=== PATIENT | female | born 1990 | race Caucasian/White ===

== ENCOUNTER 2024-10-18 22:22 | Inpatient (IN) | payer MEDICAID ==
[~2024-10-18] VITALS: Ht 167.6 cm; Wt 119.0 kg
--- NOTE | 2024-10-18 22:42 | ED.PDOC ---
History of Present Illness HPI Comments 35 y/o F, with a history of HTN, obesity, cholecystectomy, and J-tube placement, is BIBA for c/o abdominal and back pain, abdominal distension, dizziness, weakness, and chills, today. Per EMS report, patient endorses on onset of symptoms following cholecystectomy she had performed on 10/01/24 and calling, toda y, due to feeling more weak. She comments on pain being diffused across her abdomen but more localized around her RLQ. She reports no additional relevant information at time of initial assessment, such as recent injuries, sick contact, or spoiled food intake. Patient reports no nausea, vomiting, diarrhea, urinary symptoms, fever, chills, or other associated symptoms or modifiers at this time. 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 Past Medical History PAST MEDICAL HISTORY: HTN Past Medical History (Other): obesity Surgical History: Cholecystectomy Surgical History (Other): J-tube All Other Systems: Reviewed and Negative (negative unless otherwise stated above or in HPI) Physical Exam General Appearance: Mild Distress, No Apparent Distress, Obese HEENT: Normal ENT Inspection, Pharynx Normal, TMs Normal Neck: Full Range of Motion, Non-Tender, Normal, Normal Inspection Respiratory: Chest Non-Tender, Lungs Clear, No Accessory Muscle Use, No Respiratory Distress, Normal Breath Sounds Cardiovascular: No Edema, No JVD, No Murmur, No Gallop, Normal Peripheral Pulses, Regular Rate/Rhythm Breast Exam: Deferred Gastrointestinal: No Organomegaly, No Pulsatile Mass, Normal Bowel Sounds, RLQ (tenderness around J-tube site ), Soft, Tenderness (RLQ around J-tube, no peritoneal signs ), Other (J-tube in place ) Genitalia: Deferred Pelvic: Deferred Rectal: Deferred Extremities: No calf tenderness, Normal capillary refill, Normal inspection, Normal range of motion, Non-tender, No pedal edema Musculoskeletal : Apperance: Normal Neurologic: Alert, 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 Was a procedure done?: No Differential Dx Considerations may include: post-op complication, secondary infection X-Ray, Labs, Meds, VS Vital Signs Date Time Temp Pulse Resp B/P (MAP) Pulse Ox O2 Delivery O2 Flow Rate FiO2 10/19/24 02:01 92 16 152/93 10/19/24 00:00 98 10/18/24 23:00 97.9 97 12 150/95 (113) 100 97.9 10/18/24 22:41 99.1 96 18 181/119 (139) 98 Lab Test 10/18/24 23:13 10/18/24 02:20 Range/Units White Blood Count 11.3 H 4.4-10.8 10^3/uL Red Blood Count 3.39 L 4.0-5.20 10^6/uL Hemoglobin 9.2 L 12.2-16.2 g/dL Hematocrit 28.6 L 36.0-46.0 % Mean Corpuscular Volume 84.4 80.0-100.0 fL Mean Corpuscular Hemoglobin 27.3 L 28.0-32.0 pg Mean Corpuscular Hemoglobin Concent 32.3 32.0-36.0 g/dL Red Cell Distribution Width 16.3 H 11.8-14.3 % Platelet Count 517 H 140-450 10^3/uL Mean Platelet Volume 7.0 6.9-10.8 fL Neutrophils (%) (Auto) 76.5 37.0-80.0 % Lymphocytes (%) (Auto) 16.6 10.0-50.0 % Monocytes (%) (Auto) 5.0 0.0-12.0 % Eosinophils (%) (Auto) 1.5 0.0-7.0 % Basophils (%) (Auto) 0.4 0.0-2.0 % Neutrophils # (Auto) 8.6 1.6-8.6 10 ^3/uL Lymphocytes # (Auto) 1.9 0.4-5.4 10 ^3/uL Monocytes # (Auto) 0.6 0-1.3 10 ^3/uL Eosinophils # (Auto) 0.2 0-0.8 10 ^3/uL Basophils # (Auto) 0 0-0.2 10 ^3/uL Nucleated Red Blood Cells 0.1 % Sodium Level 139 136-145 mmol/L Potassium Level 3.6 3.5-5.1 mmol/L Chloride Level 105 98-107 mmol/L Carbon Dioxide Level 24 20-31 mmol/L Anion Gap 10 5-15 Blood Urea Nitrogen 13 9-23 mg/dL Creatinine 0.68 0.550-1.02 mg/dL Glomerular Filtration Rate Calc 116 >90 mL/min BUN/Creatinine Ratio 19.1 10.0-20.0 Serum Glucose 85 74-106 mg/dL Calcium Level 10.0 8.7-10.4 mg/dL Total Bilirubin 0.4 0.2-1.0 mg/dL Aspartate Amino Transferase (AST) 13 13-40 U/L Alanine Aminotransferase (ALT) 15 7-40 U/L Alkaline Phosphatase 55 46-116 U/L Total Protein 7.3 5.7-8.2 g/dL Albumin 4.4 3.2-4.8 g/dL Lipase 70 H 12-53 U/L Beta HCG, Quantitative 0.6 L 1.5-4.2 mIU/mL Urine Color Light-yellow Yellow Urine Clarity Turbid H Clear Urine pH 7.0 5.0-9.0 Urine Specific [place] 1.021 1.001-1.035 Urine Protein Negative Negative Urine Ketones Negative Negative Urine Blood Negative Negative /uL Urine Nitrite Negative Negative Urine Bilirubin Negative Negative Urine Urobilinogen Normal Negative mg/dL Urine Leukocyte Esterase Negative Negative /uL Urine RBC 2 0 - 4 /hpf Urine Microscopic WBC 3 0-5 /HPF Urine Squamous Epithelial Cells Mod <5 /hpf Urine Amorphous Crystals Few None Seen /hpf Urine Bacteria None seen None Seen /hpf Urine Mucus Few None Seen Urine Glucose Normal Normal mg/dL Current Medications Medications (Trade) Dose Ordered Sig/[place] Route Start Time Stop Time Status Last Admin Ondansetron HCl (Zofran) 4 mg ONCE ONCE IV 10/18/24 22:45 10/18/24 22:46 DC 10/19/24 02:01 Sodium Chloride 1,000 ml @ 1,000 mls/hr Q1H ONCE IVB 10/18/24 22:45 10/18/24 23:44 DC 10/19/24 02:02 Morphine Sulfate 4 mg ONCE ONCE IV 10/18/24 22:45 10/18/24 22:46 DC 10/19/24 02:01 Time of 1ST Reevaluation: 23:30 Reevaluation 1ST: Unchanged Time of 2ND Reevaluation: 03:55 Reevaluation 2ND: Unchanged Patient Education/Counseling: Diagnosis, Treatment Family Education/Counseling: No Family Present Departure 1 Departure Time of Disposition: 03:56 Impression: Primary Impression: Intra-abdominal fluid collection Additional Impressions: Anemia Post-operative pain Disposition: 09 ADMITTED INPATIENT Condition: Guarded Discharged With: Self Comments Post-Cholecystectomy Abdominal Pain with Fluid Collection Chief Complaint: Right-sided abdominal pain at INDIA drain site status post cholecystectomy History of Present Illness: 35-year-old female presents to the Emergency Department with worsening right- sided abdominal pain at the site of her INDIA drain. Patient underwent cholecystectomy approximately three weeks ago at [facility], performed by Dr. Ferro. She has had persistent pain at the surgical site, which has recently worsened. The INDIA drain remains in place from the original surgery. Patient reports increasing discomfort in the right upper quadrant of her abdomen. Review of Systems: Limited review of systems due to focused evaluation. 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 Abdomen: INDIA drain present in right upper quadrant with surrounding tenderness Lab Results: CBC: - Hemoglobin: 9.0 g/dL (Low) - Hematocrit: 29% (Low) - WBC: 11.3 K/uL (Elevated) Chemistry: - Lipase: 70 U/L (Mildly elevated) Imaging and Other Relevant Results: CT Abdomen: - Significant fluid collection in gallbladder fossa - Differential includes hematoma, infection, or abscess Medical Decision Making: Summary Statement: 35-year-old female presenting with worsening post-cholecystectomy pain, elevated inflammatory markers, and CT evidence of fluid collection, concerning for post-surgical complication. Problem List: 1. Post-cholecystectomy fluid collection 2. Post-operative pain 3. Post-operative anemia 4. Elevated WBC count Differential Diagnosis: 1. Intra-abdominal abscess 2. Post-operative hematoma 3. Biloma 4. Post-surgical infection ED Course: Patient evaluated with labs and CT imaging. Surgical consultation obtained. Decision made to admit for IV antibiotics and further management. Patient agreeable to plan after shared decision making discussion. Assessment and Plan: 1. Post-cholecystectomy fluid collection with possible infection/abscess - Admit to hospital for further management - IV antibiotics to be initiated - Surgical consultation for possible intervention - Monitor INDIA drain output 2. Post-operative anemia (Hgb 9.0) - Monitor hemoglobin trends - Evaluate for active bleeding 3. Post-operative pain - Pain management as appropriate - Continue to monitor symptoms Billing Information: ICD-10: K91.89 - Other postprocedural complications and disorders of digestive system ICD-10: T81.4XXA - Infection following a procedure, initial encounter ICD-10: D64.9 - Anemia, unspecified Critical Care Note Critical Care Time?: Yes (35 min-critical care time only) Critical care comment: Total critical care time: Approximately 36 minutes Due to a high probability of clinically significant, life threatening deterioration, the patient required my highest level of preparedness to intervene emergently and I personally spent this critical care time directly and personally managing the patient. This critical care time included obtaining a history; examining the patient; pulse oximetry; ordering and review of studies; arranging urgent treatment with development of a management plan; evaluation of patient's response to treatment; frequent reassessment; and, discussions with other providers. This critical care time was performed to assess and manage the high probability of imminent, life-threatening deterioration that could result in multi-organ failure. It was exclusive of separately billable procedures and treating other patients. Stability Stability form required: No Heart Score Heart Score: Heart Score Response (Comments) Value History N/A 0 EKG N/A 0 Age N/A 0 Risk Factors N/A 0 Troponin N/A 0 Total 0 I personally scribed for JR GRAFF MD ([email or web address]) on 10/18/24 at 22:42. Electronically submitted by Benny Galicia ([email or web address]). JR GRAFF MD Oct 18, 2024 22:42
[2024-10-18 23:02] VITALS: PULSE 97; RESP 12; O2SAT 100
[2024-10-18 23:27] LABS: Monocytes # (auto) 0.6 10 ^3/uL (0-1.3); White Blood Cell 11.3 10^3/uL (4.4-10.8)
[2024-10-18 23:28] LABS: Basophils # (auto) 0 10 ^3/uL (0-0.2); Basophils % (auto) 0.4 % (0.0-2.0); Eosinophils # (auto) 0.2 10 ^3/uL (0-0.8); Eosinophils % (auto) 1.5 % (0.0-7.0); Hematocrit 28.6 % (36.0-46.0); Hemoglobin 9.2 g/dL (12.2-16.2); Lymphocytes # (auto) 1.9 10 ^3/uL (0.4-5.4); Lymphocytes % (auto) 16.6 % (10.0-50.0); Mean Corpuscular Hemoglobin 27.3 pg (28.0-32.0); Mean Corpuscular Hgb Conc. 32.3 g/dL (32.0-36.0); Mean Corpuscular Volume 84.4 fL (80.0-100.0); Neutrophils # (auto) 8.6 10 ^3/uL (1.6-8.6); Neutrophils % (auto) 76.5 % (37.0-80.0); Nucleated Red Blood Cells % 0.1 %; Platelet Count (auto) 517 10^3/uL (140-450); Red Blood Cells 3.39 10^6/uL (4.0-5.20); Red Cell Distribution Width 16.3 % (11.8-14.3)
[2024-10-18 23:39] LABS: Alanine Aminotransferase 15 U/L (7-40); Albumin 4.4 g/dL (3.2-4.8); Alkaline Phosphatase 55 U/L (46-116); Anion Gap 10 (5-15); BUN/Creatinine Ratio 19.1 (10.0-20.0); Bilirubin, Total 0.4 mg/dL (0.2-1.0); Blood Urea Nitrogen 13 mg/dL (9-23); Carbon Dioxide 24 mmol/L (20-31); Chloride 105 mmol/L (98-107); Glucose 85 mg/dL (74-106); Potassium 3.6 mmol/L (3.5-5.1); Sodium 139 mmol/L (136-145)
[2024-10-18 23:40] LABS: Total Protein 7.3 g/dL (5.7-8.2)
[2024-10-18 23:41] LABS: Aspartate Aminotransferase 13 U/L (13-40); Lipase 70 U/L (12-53)
[2024-10-19] MEDS: MORPHINE SULFATE 4 MG/ML SYR/VIAL IV ONE (02:01)
[2024-10-19] MEDS: ONDANSETRON HCL 4 MG/2 ML VIAL IV ONE (02:01)
[2024-10-19] MEDS: SODIUM CHLORIDE 0.9% 1,000 ML IVB ONE (02:02)
[2024-10-19 02:35] LABS: Urine Bacteria None Seen /hpf (None Seen)
[2024-10-19 02:51] LABS: Urine Amorphous Crystal FEW /hpf (None Seen); Urine Blood Negative /uL (Negative); Urine Clarity Turbid (Clear); Urine Color Light-Yellow (Yellow); Urine Mucus FEW (None Seen); Urine Protein, UAD Negative (Negative); Urine Specific Gravity 1.021 (1.001-1.035); Urine Squamous Epithelial Cell MOD /hpf (<5); Urine Urobilinogen Normal (Negative); Urine WBC 3 /HPF (0-5)
[2024-10-19] MEDS: IOHEXOL 300 MG/ML 100ML BOTTLE IJ ONE (03:29)
--- NOTE | 2024-10-19 03:34 | DVH ---
Exam: CT CT AB PEL WITH IV CON ONLY History: right sided abd pain s/p cholecystectomy Comparison Study: None available at time of dictation. Technique: Multidetector spiral CT of the abdomen and pelvis was performed from lung bases to pubic s ymphysis. Intravenous contrast was administered during this examination. Portal venous imaging was obtained. Axial, coronal and sagittal multiplanar reformats were performed by the technologist on a separate workstation. Radiation Dose : 1. Abdomen/Pelvis: CTDIvol 27.83mGy, DLP 1557.85 mGy*cm. Findings: Lung Bases: No acute or significant lung base finding. Normal heart size. No pleural or pericardial effusion. Liver: The liver is normal in size. No focal lesions. Normal hepatic vascular enhancement. Gallbladder and Biliary Tree: Patient is post cholecystectomy. A surgical drain is noted with its tip in the gallbladder fossa near the hepatic hilum. In the gallbladder fossa there is a mixed density collection measuring 5.6 x 3.9 x 3.8 cm, probably representing a hematoma. Phlegmon is not entirely e xcluded. There is no biliary ductal dilatation. Spleen: Unremarkable Pancreas: The pancreas is normal in appearance without focal lesions or abnormal enhancement. Adrenal Glands: Unremarkable Kidneys: Kidneys demonstrate normal symmetric enhancement without focal lesions, calculi or hydroneph rosis. Bladder: The urinary bladder is relatively contracted. Bowel: The stomach is grossly normal in appearance. There is no evidence for small bowel obstruction. Colon is largely contracted. Normal appendix is visualized in the right lower quadrant without find ings of appendicitis. Ascites: There are small free ascites in the pelvis anteriorly. Lymphadenopathy: No mesenteric, retroperitoneal or periportal lymphadenopathy. Abdominal Wall and Mesentery: Is mild expansion of the right abdominal musculature or the drainage ca theter traverses. Finding most likely represents small intramuscular hematoma although superinfectio n can not be entirely excluded. No drainable fluid collection is appreciated. Vasculature: The visualized abdominal aorta is normal in size and caliber. Abdominal and pelvic vess els demonstrate normal enhancement. Pelvic Organs: Unremarkable Musculoskeletal: No aggressive focal bony lesions, acute fractures or dislocation. IMPRESSION: 1. Postsurgical change as described. Indwelling surgical drain. 2. 5.6 cm mixed density collection in the gallbladder fossa most likely representing a hematoma. Supe rinfection can not be entirely excluded. Radiation optimization: All CT scans at this facility use at least one of these dose optimization kianna hniques: automated exposure control mA and/or kV adjustment per patient size (includes targeted exam s where dose is matched to clinical indication) or iterative reconstruction.
--- NOTE | 2024-10-19 04:18 | DVHHP2 ---
History of Present Illness Reason for Visit: Pain at surgical site History of Present Illness 35-year-old female presents for evaluation of pain at the surgical site status post cholecystectomy. Patient underwent cholecystectomy on 10/01/2024. She reports having tenderness around the surgical site since discharge. Patient reports intermittent chills. Denies nausea or vomiting. No cardiac or respiratory complaints. Past Medical History Hypertension Past Surgical History Cholecystectomy Family History Noncontributory Smoke: No ALCOHOL: none Drugs: None Lives: with Family Review of Systems Review of Systems Review of systems are currently negative otherwise addressed in HPI. Allergies: Coded Allergies: Metronidazole (Verified Allergy, Unknown, 10/18/24) Exam Vital Signs Vital Signs Date Time Temp Pulse Resp B/P (MAP) Pulse Ox O2 Delivery O2 Flow Rate FiO2 10/19/24 02:01 92 16 152/93 10/18/24 23:00 97.9 100 97.9 Exam Gen: 35-year-old female in mild distress, morbidly obese Skin: Warm, dry, normal color and texture, no rash. HEENT: Normocephalic atraumatic, mucous membranes moist and pink. Neck: Cervical and supraclavicular nodes normal without enlargement, trachea is midline, thyroid gland is normal without masses. Pulmonary: Clear to auscultation and percussion bilaterally. Cardiac: Regular rate and rhythm. No murmur Abdomen: Soft, tenderness around INDIA site, nondistended, bowel sounds present all 4 quadrants, no guarding, no rigidity, no organomegaly, a INDIA draining serous fluid. Extremities: No cyanosis, clubbing, no edema Neuro: Cranial nerves II through XII grossly intact, normal affect and speech, no focal motor deficits. Labs/Xrays ORDERING PHYSICIAN: JR GRAFF MD PROCEDURE(s): ABPLIV - CT AB PEL WITH IV CON ONLY REASON: right sided abd pain s/p cholecystectomy ORDER NUMBER(s): [id number], ACCESSION NUMBER(s): [id number] Exam: CT CT AB PEL WITH IV CON ONLY History: right sided abd pain s/p cholecystectomy Comparison Study: None available at time of dictation. Technique: Multidetector spiral CT of the abdomen and pelvis was performed from lung bases to pubic symphysis. Intravenous contrast was administered during this examination. Portal venous imaging was obtained. Axial, coronal and sagittal multiplanar reformats were performed by the technologist on a separate workstation. Radiation Dose : 1. Abdomen/Pelvis: CTDIvol 27.83mGy, DLP 1557.85 mGy*cm. Findings: Lung Bases: No acute or significant lung base finding. Normal heart size. No pleural or pericardial effusion. Liver: The liver is normal in size. No focal lesions. Normal hepatic vascular enhancement. Gallbladder and Biliary Tree: Patient is post cholecystectomy. A surgical drain is noted with its tip in the gallbladder fossa near the hepatic hilum. In the gallbladder fossa there is a mixed density collection measuring 5.6 x 3.9 x 3.8 cm, probably representing a hematoma. Phlegmon is not entirely excluded. There is no biliary ductal dilatation. Spleen: Unremarkable Pancreas: The pancreas is normal in appearance without focal lesions or abnormal enhancement. Adrenal Glands: Unremarkable Kidneys: Kidneys demonstrate normal symmetric enhancement without focal lesions, calculi or hydronephrosis. Bladder: The urinary bladder is relatively contracted. Bowel: The stomach is grossly normal in appearance. There is no evidence for small bowel obstruction. Colon is largely contracted. Normal appendix is visualized in the right lower quadrant without findings of appendicitis. Ascites: There are small free ascites in the pelvis anteriorly. Lymphadenopathy: No mesenteric, retroperitoneal or periportal lymphadenopathy. Abdominal Wall and Mesentery: Is mild expansion of the right abdominal muscula ture or the drainage catheter traverses. Finding most likely represents small intramuscular hematoma although superinfection can not be entirely excluded. No drainable fluid collection is appreciated. Vasculature: The visualized abdominal aorta is normal in size and caliber. Abdominal and pelvic vessels demonstrate normal enhancement. Pelvic Organs: Unremarkable Musculoskeletal: No aggressive focal bony lesions, acute fractures or dislocation. IMPRESSION: 1. Postsurgical change as described. Indwelling surgical drain. 2. 5.6 cm mixed density collection in the gallbladder fossa most likely representing a hematoma. Superinfection can not be entirely excluded. Radiation optimization: All CT scans at this facility use at least one of these dose optimization techniques: automated exposure control mA and/or kV adjustment per patient size (includes targeted exams where dose is matched to clinical indication) or iterative reconstruction. Labs Test 10/18/24 23:13 10/18/24 02:20 Range/Units White Blood Count 11.3 H 4.4-10.8 10^3/uL Red Blood Count 3.39 L 4.0-5.20 10^6/uL Hemoglobin 9.2 L 12.2-16.2 g/dL Hematocrit 28.6 L 36.0-46.0 % Mean Corpuscular Volume 84.4 80.0-100.0 fL Mean Corpuscular Hemoglobin 27.3 L 28.0-32.0 pg Mean Corpuscular Hemoglobin Concent 32.3 32.0-36.0 g/dL Red Cell Distribution Width 16.3 H 11.8-14.3 % Platelet Count 517 H 140-450 10^3/uL Mean Platelet Volume 7.0 6.9-10.8 fL Neutrophils (%) (Auto) 76.5 37.0-80.0 % Lymphocytes (%) (Auto) 16.6 10.0-50.0 % Monocytes (%) (Auto) 5.0 0.0-12.0 % Eosinophils (%) (Auto) 1.5 0.0-7.0 % Basophils (%) (Auto) 0.4 0.0-2.0 % Neutrophils # (Auto) 8.6 1.6-8.6 10 ^3/uL Lymphocytes # (Auto) 1.9 0.4-5.4 10 ^3/uL Monocytes # (Auto) 0.6 0-1.3 10 ^3/uL Eosinophils # (Auto) 0.2 0-0.8 10 ^3/uL Basophils # (Auto) 0 0-0.2 10 ^3/uL Nucleated Red Blood Cells 0.1 % Sodium Level 139 136-145 mmol/L Potassium Level 3.6 3.5-5.1 mmol/L Chloride Level 105 98-107 mmol/L Carbon Dioxide Level 24 20-31 mmol/L Anion Gap 10 5-15 Blood Urea Nitrogen 13 9-23 mg/dL Creatinine 0.68 0.550-1.02 mg/dL Glomerular Filtration Rate Calc 116 >90 mL/min BUN/Creatinine Ratio 19.1 10.0-20.0 Serum Glucose 85 74-106 mg/dL Calcium Level 10.0 8.7-10.4 mg/dL Total Bilirubin 0.4 0.2-1.0 mg/dL Aspartate Amino Transferase (AST) 13 13-40 U/L Alanine Aminotransferase (ALT) 15 7-40 U/L Alkaline Phosphatase 55 46-116 U/L Total Protein 7.3 5.7-8.2 g/dL Albumin 4.4 3.2-4.8 g/dL Lipase 70 H 12-53 U/L Beta HCG, Quantitative 0.6 L 1.5-4.2 mIU/mL Urine Color Light-yellow Yellow Urine Clarity Turbid H Clear Urine pH 7.0 5.0-9.0 Urine Specific [place] 1.021 1.001-1.035 Urine Protein Negative Negative Urine Ketones Negative Negative Urine Blood Negative Negative /uL Urine Nitrite Negative Negative Urine Bilirubin Negative Negative Urine Urobilinogen Normal Negative mg/dL Urine Leukocyte Esterase Negative Negative /uL Urine RBC 2 0 - 4 /hpf Urine Microscopic WBC 3 0-5 /HPF Urine Squamous Epithelial Cells Mod <5 /hpf Urine Amorphous Crystals Few None Seen /hpf Urine Bacteria None seen None Seen /hpf Urine Mucus Few None Seen Urine Glucose Normal Normal mg/dL Assessment/Plan Assessment/Plan Assessment Postoperative complication Status post cholecystectomy Hypertension Mild anemia Morbid obesity Plan Admit the patient to [facility] to the hospitalist NPO Surgical consultation Maintenance IV fluids Zosyn Pain management Continue treatment per orders. Plan discussed with: Patient My Orders Orders - ARGENIS VILLATORO Procedure Category Date Status Time * Surgical Consult CONS 10/19/24 Verified Zosyn Extended PHA 10/19/24 Verified Infusion 06:00 NS PHA 10/19/24 Verified 04:15 Basic Metabolic Panel LAB 10/20/24 Verified 04:00 Admit ADMIT 10/19/24 Verified 04:10 Ondansetron Hcl PHA 10/19/24 Verified (Zofran) 04:15 Complete Blood Count LAB 10/20/24 Verified 04:00 Npo (Nothing By DIET 10/19/24 Verified Mouth) Diet Breakfast Condition: Stable FELECIA 10/19/24 Verified 04:10 Bedrest With Bathroom FELECIA 10/19/24 Verified Privileg 04:10 Morphine Sulfate PHA 10/19/24 Verified Injection 04:15 Date of Service: Oct 19, 2024 Billing Provider: ARGENIS VILLATORO Common Visit Codes: [id number] INP/OBS CARE (HIGH) ARGENIS VILLATORO Oct 19, 2024 04:18
[2024-10-19] MEDS: PIPERACILLIN-TAZO 4.5GM 100 ML IV ONE (05:05)
[2024-10-19] MEDS: SODIUM CHLORIDE 0.9% 1,000 ML IV SCH (05:06)
[2024-10-19] MEDS: hydrALAZINE HCL 20 MG/ML VL IV PRN (05:18)
[2024-10-19] MEDS: HYDROcodone-ACET 10/325MG TAB PO ONE (05:19)
[2024-10-19] MEDS ORDERED: KETOROLAC TROMETH 30 MG/ML 1ML VIAL IV ONE (07:00)
[2024-10-19 07:30] VITALS: PULSE 100; RESP 16; O2SAT 99
--- NOTE | 2024-10-19 08:47 | DVHINCON2 ---
Date of service: Oct 19, 2024 Reason for Consultation S/P CHOLECYSTECTOMY pain at the drain site History of Present Illness History Source: Patient Exam Limitations: No limitations HPI 35 year old female presented to the ER for evaluation of pain at surgical drain site. Patient underwent a Laparoscopic cholecystectomy earlier this month. She reports tenderness around the surgical site discharge. Patient she has been experiencing chills intermittently , denies nausea and vomiting. Chief Complaint of Abdominal/F: Abdominal pain Past Medical History Cardiac: HTN Pulmonary: No pertinent Hx Central Nervous System: No pertinent Hx GI: No pertinent Hx Hemotology/Oncology: No pertinent Hx Hepatobiliary: No pertinent Hx Psychiatric: No pertinent Hx Musculoskeletal: No pertinent Hx Rheumotologic: No pertinent Hx Infectious Disease: No peritnent Hx ENT: No pertinent Hx Renal/: No pertinent Hx Endocrine: No pertinent Hx Dermatology: No pertinent Hx Past Surgical History: Cholecystectomy Smoker: No Hx (Negative) Alocohol: None Drugs: None Lives with: With family Review of Systems Constitutional: Chills Ears, Nose, & Throat: No symptom reported Eyes: No symptom reported Pulmonary/Respiratory: No symptom reported Cardiovascular: No symptom reported Gastrointestinal: Abdominal Pain (around drain site) Genitourinary: No symptom reported Musculoskeletal: No symptom reported Skin: No symptom reported Endocrine: No symptom reported Hemotologic/Lymphatic: No symptom reported H&P Exam Vital Signs Vital Signs Date Time Temp Pulse Resp B/P (MAP) Pulse Ox O2 Delivery O2 Flow Rate FiO2 10/19/24 08:17 95 10/19/24 07:30 16 99 Room Air* 0 21 10/19/24 07:30 99.0 132/80 (97) 99.0 General Appeara: Well developed, Well nourished, Normal Appearance Head Exam: Normal inspection Neck Exam: Normal inspection Eye Exam: bilateral eye Normal inspection, bilateral eye PERRL Nasal Exam: Normal inspection Mouth: Normal Inspection Pulmonary/Respiratory: Normal inspection Cardiovascular/Chest: Normal inspection Abdominal Exam: Normal bowel sounds, Soft Abdominal Pain Onset Location: Other (around drain site) Tendon/ Neuro: 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 hearing, Normal speech, PERRL Neuro/Mental St: Alert, Oriented Appearance: Appropriate appearance Eye contact/ Speech: Cooperative, Good eye contact, Normal speech Skin Exam: Normal inspection Labs/Xrays Labs Test 10/19/24 05:31 10/18/24 23:13 10/18/24 02:20 Range/Units Lactic Acid Level 0.7 0.4-2.0 mmol/L White Blood Count 11.3 H 4.4-10.8 10^3/uL Red Blood Count 3.39 L 4.0-5.20 10^6/uL Hemoglobin 9.2 L 12.2-16.2 g/dL Hematocrit 28.6 L 36.0-46.0 % Mean Corpuscular Volume 84.4 80.0-100.0 fL Mean Corpuscular Hemoglobin 27.3 L 28.0-32.0 pg Mean Corpuscular Hemoglobin Concent 32.3 32.0-36.0 g/dL Red Cell Distribution Width 16.3 H 11.8-14.3 % Platelet Count 517 H 140-450 10^3/uL Mean Platelet Volume 7.0 6.9-10.8 fL Neutrophils (%) (Auto) 76.5 37.0-80.0 % Lymphocytes (%) (Auto) 16.6 10.0-50.0 % Monocytes (%) (Auto) 5.0 0.0-12.0 % Eosinophils (%) (Auto) 1.5 0.0-7.0 % Basophils (%) (Auto) 0.4 0.0-2.0 % Neutrophils # (Auto) 8.6 1.6-8.6 10 ^3/uL Lymphocytes # (Auto) 1.9 0.4-5.4 10 ^3/uL Monocytes # (Auto) 0.6 0-1.3 10 ^3/uL Eosinophils # (Auto) 0.2 0-0.8 10 ^3/uL Basophils # (Auto) 0 0-0.2 10 ^3/uL Nucleated Red Blood Cells 0.1 % Sodium Level 139 136-145 mmol/L Potassium Level 3.6 3.5-5.1 mmol/L Chloride Level 105 98-107 mmol/L Carbon Dioxide Level 24 20-31 mmol/L Anion Gap 10 5-15 Blood Urea Nitrogen 13 9-23 mg/dL Creatinine 0.68 0.550-1.02 mg/dL Glomerular Filtration Rate Calc 116 >90 mL/min BUN/Creatinine Ratio 19.1 10.0-20.0 Serum Glucose 85 74-106 mg/dL Calcium Level 10.0 8.7-10.4 mg/dL Total Bilirubin 0.4 0.2-1.0 mg/dL Aspartate Amino Transferase (AST) 13 13-40 U/L Alanine Aminotransferase (ALT) 15 7-40 U/L Alkaline Phosphatase 55 46-116 U/L Total Protein 7.3 5.7-8.2 g/dL Albumin 4.4 3.2-4.8 g/dL Lipase 70 H 12-53 U/L Beta HCG, Quantitative 0.6 L 1.5-4.2 mIU/mL Urine Color Light-yellow Yellow Urine Clarity Turbid H Clear Urine pH 7.0 5.0-9.0 Urine Specific [place] 1.021 1.001-1.035 Urine Protein Negative Negative Urine Ketones Negative Negative Urine Blood Negative Negative /uL Urine Nitrite Negative Negative Urine Bilirubin Negative Negative Urine Urobilinogen Normal Negative mg/dL Urine Leukocyte Esterase Negative Negative /uL Urine RBC 2 0 - 4 /hpf Urine Microscopic WBC 3 0-5 /HPF Urine Squamous Epithelial Cells Mod <5 /hpf Urine Amorphous Crystals Few None Seen /hpf Urine Bacteria None seen None Seen /hpf Urine Mucus Few None Seen Urine Glucose Normal Normal mg/dL Assessment/Plan Problem List: (1) History of laparoscopic cholecystectomy (2) Post-operative pain (3) Febrile Plan S/P laparoscopic cholecystectomy patient complaint of pain around drain site. intermittent chills, denies fevers, nausea or vomiting drain suture broken INDIA drain minimal serous fluid tender around the JR drain site fever elevated WBC local infection around drain site CT reviewed discussed with Dr. Thayer Plan: Admit for IV antibiotics IV hydration CBC redraw later today Possibly remove drain tomorrow wound drain site leave open to air Patient to ambulate every 4 hours Plan discussed with: Patient, Other (Dr. Thayer) Visit Coding Surgery Date of Service if different f: Oct 19, 2024 Billing Provider: BONNY THAYER MD Surgery Visit Codes: [id number] - INP CONSULT <80 MIN CRESENCIO VERMA [facility] Oct 19, 2024 08:47
[2024-10-19 09:59] VITALS: BP 140/88; PULSE 97; RESP 17; TEMP 98.1; O2SAT 0; O2SAT 98
[2024-10-19 12:09] LABS: Basophils # (auto) 0.1 10 ^3/uL (0-0.2); Eosinophils # (auto) 0.1 10 ^3/uL (0-0.8)
[2024-10-19 12:13] LABS: Basophils % (auto) 0.5 % (0.0-2.0); Eosinophils % (auto) 0.4 % (0.0-7.0); Hematocrit 27.1 % (36.0-46.0); Hemoglobin 8.8 g/dL (12.2-16.2); Lymphocytes # (auto) 1.5 10 ^3/uL (0.4-5.4); Lymphocytes % (auto) 12.1 % (10.0-50.0); Mean Corpuscular Hemoglobin 27.8 pg (28.0-32.0); Mean Corpuscular Hgb Conc. 32.7 g/dL (32.0-36.0); Monocytes # (auto) 0.7 10 ^3/uL (0-1.3); Monocytes % (auto) 5.7 % (0.0-12.0); Neutrophils # (auto) 10.3 10 ^3/uL (1.6-8.6); Neutrophils % (auto) 81.3 % (37.0-80.0); Platelet Count (auto) 492 10^3/uL (140-450); Red Blood Cells 3.18 10^6/uL (4.0-5.20); Red Cell Distribution Width 15.9 % (11.8-14.3); White Blood Cell 12.7 10^3/uL (4.4-10.8)
[2024-10-19] MEDS: MORPHINE SULFATE INJ 2 MG/ml SYRG IV PRN (12:33)
[2024-10-19] MEDS: ONDANSETRON HCL 4 MG/2 ML VIAL IV PRN (12:41)
[2024-10-19] MEDS: CLINDAMYCIN 600MG IV 50 ML IV SCH ×2 (13:28→21:20)
[2024-10-19 20:00] VITALS: O2SAT 97
[2024-10-19] MEDS: CEFEPIME 2GM/50ML 50 ML IV SCH (22:23)
[2024-10-19] MEDS ORDERED: ARTIFICIAL TEARS 15ml EACHEYE PRN (23:45)
[2024-10-20 01:00] VITALS: BP 127/86; PULSE 96; RESP 18; TEMP 98.8; O2SAT 97
[2024-10-20 05:00] VITALS: BP 125/70; PULSE 94; RESP 20; TEMP 98.9; O2SAT 96
[2024-10-20 06:30] LABS: Chloride 106 mmol/L (98-107); Potassium 3.6 mmol/L (3.5-5.1); Sodium 138 mmol/L (136-145)
[2024-10-20 06:31] LABS: Anion Gap 8 (5-15); Carbon Dioxide 24 mmol/L (20-31)
[2024-10-20 06:32] LABS: Calcium 9.1 mg/dL (8.7-10.4)
[2024-10-20 06:36] LABS: BUN/Creatinine Ratio 13.2 (10.0-20.0); Glucose 93 mg/dL (74-106)
[2024-10-20 06:44] LABS: Blood Urea Nitrogen 9 mg/dL (9-23)
[2024-10-20 07:10] LABS: Basophils # (auto) 0 10 ^3/uL (0-0.2); Basophils % (auto) 0.2 % (0.0-2.0); Eosinophils # (auto) 0.2 10 ^3/uL (0-0.8); Hematocrit 26.1 % (36.0-46.0); Hemoglobin 8.5 g/dL (12.2-16.2); Lymphocytes # (auto) 1.7 10 ^3/uL (0.4-5.4); Lymphocytes % (auto) 20.2 % (10.0-50.0); Mean Corpuscular Hemoglobin 27.7 pg (28.0-32.0); Mean Corpuscular Hgb Conc. 32.6 g/dL (32.0-36.0); Mean Corpuscular Volume 84.7 fL (80.0-100.0); Monocytes # (auto) 0.8 10 ^3/uL (0-1.3); Monocytes % (auto) 9.1 % (0.0-12.0); Neutrophils # (auto) 5.7 10 ^3/uL (1.6-8.6); Neutrophils % (auto) 68.5 % (37.0-80.0); Nucleated Red Blood Cells % 0.1 %; Platelet Count (auto) 436 10^3/uL (140-450); Red Blood Cells 3.08 10^6/uL (4.0-5.20); Red Cell Distribution Width 16.2 % (11.8-14.3); White Blood Cell 8.3 10^3/uL (4.4-10.8)
[2024-10-20 09:00] VITALS: BP 135/84; PULSE 88; RESP 19; TEMP 98.6; O2SAT 97
[2024-10-20 13:00] VITALS: BP 146/83; PULSE 89; RESP 18; TEMP 98.3; O2SAT 100
--- NOTE | 2024-10-20 14:34 | DVHPN2 ---
Subjective Seen and examined at bedside, c/o abdominal pain. Drain in place. Cont Abx for now. Changes from previous H/P or p: No Changes Objective Vitals Vital Signs Date Time Temp Pulse Resp B/P (MAP) Pulse Ox O2 Delivery O2 Flow Rate FiO2 10/20/24 13:32 85 20 159/98 10/20/24 09:00 98.6 97 98.6 10/20/24 08:15 Room Air* 0 21 Intake/Output Intake and Output 10/20/24 07:00 Intake Total 950 ml Balance 950 ml Intake Oral 800 ml IV Total 150 ml # Voids 7 Exam Gen: in bed NAD Cvs: N S1/S2, RRR Resp: BLAE Abd: Obese, INDIA Drain in place Medical Assistant Dermatology: AAO x 4 Medications Current Medications Medications Dose Ordered Sig/[place] Route Start Time Stop Time Status Last Admin Dose Admin Cefepime/Dextrose 50 ml @ 12.5 mls/hr Q8HR IV 10/19/24 22:00 10/20/24 07:31 12.5 MLS/HR Sodium Chloride 1,000 ml @ 75 mls/hr [id number] IV 10/19/24 04:15 10/20/24 07:37 75 MLS/HR Ondansetron HCl 4 mg Q4HP PRN IV 10/19/24 04:15 10/20/24 13:32 4 MG Morphine Sulfate 2 mg Q4HPRN PRN IV 10/19/24 04:15 10/20/24 13:32 2 MG Hydralazine HCl 10 mg Q6HP PRN IV 10/19/24 04:15 10/19/24 05:18 10 MG Clindamycin Phosphate 50 ml @ 50 mls/hr Q8HR@0500,1300,2100 IV 10/19/24 21:00 10/20/24 13:37 50 MLS/HR Artificial Tears 2 drop Q6HP PRN EACHEYE 10/19/24 23:45 Laboratory Results Laboratory Tests 10/20/24 05:04 Chemistry Test 10/20/24 05:04 Calcium Level 9.1 mg/dL (8.7-10.4) Urinalysis Test 10/18/24 02:20 Urine Color Light-yellow (Yellow) Urine Clarity Turbid (Clear) H Urine pH 7.0 (5.0-9.0) Urine Specific [place] 1.021 (1.001-1.035) Urine Protein Negative (Negative) Urine Ketones Negative (Negative) Urine Blood Negative /uL (Negative) Urine Nitrite Negative (Negative) Urine Bilirubin Negative (Negative) Urine Urobilinogen Normal mg/dL (Negative) Urine Leukocyte Esterase Negative /uL (Negative) Urine RBC 2 /hpf (0 - 4) Urine Microscopic WBC 3 /HPF (0-5) Urine Squamous Epithelial Cells Mod /hpf (<5) Urine Amorphous Crystals Few /hpf (None Seen) Urine Bacteria None seen /hpf (None Seen) Urine Mucus Few (None Seen) Urine Glucose Normal mg/dL (Normal) Microbiology Microbiology Date/Time Source Procedure Growth Status 10/19/24 05:31 Blood Blood Culture - Preliminary NO GROWTH AFTER 24 HOURS OF INCUBATION. Resulted Assessment/Plan Assessment/Plan SIRS - Cont Abx - Surgical followup S/p Cholecystectomy 10/01/24 - INDIA Drain in place Obesity - Pipelaying Fitter on weight loss Plan discussed with: Patient Date of Service: Oct 20, 2024 Billing Provider: ROSIBEL MORATAYA MD Common Visit Codes: [id number] INP/OBS CARE(HIGH) ROSIBEL MORATAYA MD Oct 20, 2024 14:34
--- NOTE | 2024-10-20 15:25 | DVHPN2 ---
Progress Note - Surgical Date Seen: Oct 20, 2024 Post op day Post op day: 0 Subjective Patient reports: No new complaints Review of Systems: HEENT:Normal, CVS:Normal, RESPIRATORY:Normal, GI:Normal, :Normal, MSK:Normal, NEURO:Normal Objective Vital signs Vital Sign Date Time Temp Pulse Resp B/P (MAP) Pulse Ox O2 Delivery O2 Flow Rate FiO2 10/20/24 13:32 85 20 159/98 10/20/24 09:00 98.6 97 98.6 10/20/24 08:15 Room Air* 0 21 Total Intake and Output 10/19/24 10/19/24 10/20/24 15:00 23:00 07:00 Intake Total 50 ml 50 ml 850 ml Balance 50 ml 50 ml 850 ml Medications Current Medications Medications Dose Ordered Sig/[place] Route Start Time Stop Time Status Last Admin Dose Admin Cefepime/Dextrose 50 ml @ 12.5 mls/hr Q8HR IV 10/19/24 22:00 10/20/24 07:31 12.5 MLS/HR Sodium Chloride 1,000 ml @ 75 mls/hr [id number] IV 10/19/24 04:15 10/20/24 07:37 75 MLS/HR Ondansetron HCl 4 mg Q4HP PRN IV 10/19/24 04:15 10/20/24 13:32 4 MG Morphine Sulfate 2 mg Q4HPRN PRN IV 10/19/24 04:15 10/20/24 13:32 2 MG Hydralazine HCl 10 mg Q6HP PRN IV 10/19/24 04:15 10/19/24 05:18 10 MG Clindamycin Phosphate 50 ml @ 50 mls/hr Q8HR@0500,1300,2100 IV 10/19/24 21:00 10/20/24 13:37 50 MLS/HR Artificial Tears 2 drop Q6HP PRN EACHEYE 10/19/24 23:45 Laboratory Laboratory Tests 10/20/24 05:04 Test 10/20/24 05:04 Range/Units Serum Glucose 93 74-106 mg/dL Microbiology Date/Time Source Procedure Growth Status 10/19/24 05:31 Blood Blood Culture - Preliminary NO GROWTH AFTER 24 HOURS OF INCUBATION. Resulted Examination: GENERAL:Normal, HEENT:Normal, NECK:Normal, LUNGS:Normal, CVS:Normal, ABDOMEN:Abnormal (surgical drain site wound) Problem List/Assessment/Plan Problems: (1) Post-operative pain (2) History of laparoscopic cholecystectomy Assessment and Plan patient status post laproscopic cholecystectomy labs and notes reviewed, WBC down WNL, pain is better patient complaint of abdominal pain around INDIA site, INDIA drainage serous fluid 10cc, slight erythema around INDIA site, abdomen soft, non distended, tender around INDIA drain site Plain continue with IV antibiotics may may stay open to air may shower patient to ambulate of to discharge in 24 hours please send home with PO antibiotics patient to follow up in surgery clinic in 7- 10 days after discharge My Orders My Orders Orders - CRESENCIO VERMA DNP Procedure Category Date Status Time Clindamycin 600mg Iv PHA 10/19/24 In Process (Cleocin Iv) 21:00 Plan discussed with Plan discussed with: Patient Visit Coding Surgery Date of Service if different f: Oct 20, 2024 Billing Provider: BONNY SUTHERLAND MD Surgery Visit Codes: [id number] INP/OBS CARE(HIGH) CRESENCIO VERMA DNP Oct 20, 2024 15:25
[2024-10-20 17:00] VITALS: BP 146/83; PULSE 89; RESP 18; TEMP 98.3; O2SAT 100
[2024-10-20 21:00] VITALS: BP 141/85; PULSE 95; RESP 15; TEMP 98.6; O2SAT 97
[2024-10-21 01:00] VITALS: BP 147/88; PULSE 82; RESP 18; TEMP 98.5; O2SAT 99
[2024-10-21 05:00] VITALS: BP 137/84; PULSE 85; RESP 16; TEMP 98.3; O2SAT 98
[2024-10-21 09:00] VITALS: BP 140/80; PULSE 79; RESP 18; TEMP 97.9; O2SAT 99
--- NOTE | 2024-10-21 09:46 | DVHPN2 ---
Progress Note - Surgical Date Seen: Oct 21, 2024 Post op day Post op day: 0 Subjective Patient reports: No new complaints, Feels better Review of Systems: HEENT:Normal, CVS:Normal, RESPIRATORY:Normal, GI:Normal, :Normal, MSK:Normal, NEURO:Normal Other Systems: pain around drain site Objective Vital signs Vital Sign Date Time Temp Pulse Resp B/P (MAP) Pulse Ox O2 Delivery O2 Flow Rate FiO2 10/21/24 09:00 97.9 79 18 140/80 (100) 99 97.9 10/20/24 20:00 Room Air* 0 21 Total Intake and Output 10/20/24 10/20/24 10/21/24 15:00 23:00 07:00 Intake Total 150 ml 420 ml 450 ml Balance 150 ml 420 ml 450 ml Medications Current Medications Medications Dose Ordered Sig/[place] Route Start Time Stop Time Status Last Admin Dose Admin Cefepime/Dextrose 50 ml @ 12.5 mls/hr Q8HR IV 10/19/24 22:00 10/21/24 06:34 12.5 MLS/HR Sodium Chloride 1,000 ml @ 75 mls/hr [id number] IV 10/19/24 04:15 10/20/24 07:37 75 MLS/HR Ondansetron HCl 4 mg Q4HP PRN IV 10/19/24 04:15 10/21/24 06:00 4 MG Morphine Sulfate 2 mg Q4HPRN PRN IV 10/19/24 04:15 10/21/24 05:57 2 MG Hydralazine HCl 10 mg Q6HP PRN IV 10/19/24 04:15 10/19/24 05:18 10 MG Clindamycin Phosphate 50 ml @ 50 mls/hr Q8HR@0500,1300,2100 IV 10/19/24 21:00 10/21/24 05:49 50 MLS/HR Artificial Tears 2 drop Q6HP PRN EACHEYE 10/19/24 23:45 Laboratory Laboratory Tests 10/20/24 05:04 Test 10/20/24 05:04 Range/Units Serum Glucose 93 74-106 mg/dL Microbiology Date/Time Source Procedure Growth Status 10/19/24 05:31 Blood Blood Culture - Preliminary NO GROWTH AFTER 48 HOURS OF INCUBATION. Resulted Examination: GENERAL:Normal, HEENT:Normal, NECK:Normal, LUNGS:Normal, CVS:Normal, ABDOMEN:Normal, MSK:Normal, SKIN:Normal, NEURO:Normal Problem List/Assessment/Plan Assessment and Plan patient status post laproscopic cholecystectomy labs and notes reviewed, WBC down WNL, pain is better patient complaint of abdominal pain around INDIA site, INDIA drainage serous fluid 10cc, slight erythema around INDIA site, abdomen soft, non distended, tender around INDIA drain site Plain continue with IV antibiotics may may stay open to air may shower patient to ambulate of to discharge in 24 hours please send home with PO antibiotics patient to follow up in surgery clinic in 7- 10 days after discharge 10/21/2024 patient is status post laparoscopic cholecystectomy and was readmitted for pain around drain site erythema around wound has improved , non tender to palpation around INDIA drain site INDIA removed yesterday, and today patient is feeling alot better and is ready to go home Plan: per surgery point of view cleared for discharge please send home with antibiotics and pain medication patient to follow up in clinic in 10 days patient may shower wounds can be open to air Plan discussed with Plan discussed with: Patient Visit Coding Surgery Date of Service if different f: Oct 21, 2024 Billing Provider: BONNY SUTHERLAND MD Surgery Visit Codes: [id number] INP/OBS CARE(HIGH) CRESENCIO VERMA DNP Oct 21, 2024 09:46
[2024-10-21] MEDS ORDERED: AUG875T PO (11:53)
[2024-10-21] MEDS ORDERED: HYDR-4902 PO ×2 (11:53→11:59)
[2024-10-21 13:00] VITALS: BP 156/91; PULSE 89; RESP 18; TEMP 98.2; O2SAT 99
[2024-10-21 13:30] VITALS: BP 159/98
== END 2024-10-21 14:00 | disposition home or self-care (01) | DRG 721 ==
LOC: EDBD 22:22 → ER 22:22 → OVERFLOW 10-19 04:10 → EAST 10-19 10:21
PROVIDERS: ADMIT Hospitalist; ATTEND Hospitalist
DX: T85.79XA Infection and inflammatory reaction due to other internal prosthetic devices, implants and grafts, initial encounter (principal); R18.8 Other ascites; R65.10 Systemic inflammatory response syndrome (SIRS) of non-infectious origin without acute organ dysfunction; D64.9 Anemia, unspecified; E66.01 Morbid (severe) obesity due to excess calories; I10 Essential (primary) hypertension; Z90.49 Acquired absence of other specified parts of digestive tract; Z79.899 Other long term (current) drug therapy; Z68.41 Body mass index [BMI] 40.0-44.9, adult; Z88.3 Allergy status to other anti-infective agents; Y83.8 Other surgical procedures as the cause of abnormal reaction of the patient, or of later complication, without mention of misadventure at the time of the procedure; Y92.89 Other specified places as the place of occurrence of the external cause; Y73.3 Surgical instruments, materials and gastroenterology and urology devices (including sutures) associated with adverse incidents
CPT/HCPCS: 36415; 74177; 80048; 80053; 81001; 83605; 83690; 84702; 85025; 87040; 87081; 96361; 96374; 96375; 99291; G0378; J2405; J2543; J3490